=== PATIENT | female | born 1980 | race Caucasian/White ===

== ENCOUNTER 2018-03-21 19:36 | Emergency (ER) | payer OTHER ==
[~2018-03-21] VITALS: Ht 165.1 cm; Wt 99.8 kg
[~2018-03-21 19:36] MED LIST: AUGMENTIN 875-1 EACH PO; TRAMADOL HCL50 M1 PO
--- NOTE | 2018-03-21 21:10 | ED HAND/WRIST INJURY COMPLAINT ---
History of Present Illness General Chief Complaint: Hand or Wrist Injury Stated Complaint: WORK INJURY , ?FREEZER BURN Source: patient Exam Limitations: no limitations Vital Signs & Intake/Output Vital Signs & Intake/Output Vital Signs Date Time Temp Pulse Resp B/P B/P Pulse O2 O2 Flow FiO2 Mean Ox Delivery Rate 03/21 1954 98.5 71 18 151/93 97 Room Air Allergies Coded Allergies: No Known Drug Allergies (02/13/16) Uncoded Allergies: NKDA (02/13/16) Reconcile Medications Amoxicillin/Potassium Clav (Augmentin 875-125 Tablet) 1 EACH TABLET 1 TAB PO BID INFECTION Tramadol HCl 50 MG TABLET 1 TAB PO Q6 PRN BREAKTHROUGH PAIN Triage Note: PT FROM HOME C/O BURN FROM OXYGEN TANK RELEASE VALVE AROUND 1914. PT STATES SHE WAS AT WORK ([employer]) AND STATED SHE WENT TO CHANGE THE 02 TANK AND THE RELEASE VALVE WAS EXTREMEMLY COLD, PT UNSURE IF BURNED, RIGHT HAND DIGIT TIPS ARE RED, NUMB AND UNCOMFORTABLE. PT IS ABLE TO MOVE ALL DIGITS, +2 PULSES RIGHT EXT. VSS. Triage Nurses Notes Reviewed? yes Occurred: just prior to arrival Duration: hour(s): (2), better, continues in ED Timing: single episode today Injury Environment: home Severity: mild, moderate Severity Numbers: 6 Pain/Injury Location: Right: Hand, 2nd finger, 3rd finger, 4th finger. Context: cold burn No Modifying Factors: none Associated Symptoms: redness, numbness LMP (ages 10-50): unknown : No Patient currently breastfeeds: No HPI: 37 year old female hx of pud and htn presents for eval of pain, redness and njumbness in the 2nd, 3rd, 4th and 5th digits on the rt hand. this occured 2 horus ago when pt was attempting to open a very cold tank. she put her hand on the valve of the tank and the valve was very cold. she immiedatly removed her hand. the hand did not stick to the valve. she felt the symptoms shortly after, there was no broken skin, discharge, or swelling. she rpeorts redness numbness and pain to the distal fingers of the rt hand. she is up to date on tetanus. no problems with server assistant strength or moving the hand. (Chilo MATHEW,Jaren) Past History Travel History Traveled to [place] past 21 day No Medical History Any Pertinent Medical History? see below for history Cardiovascular: hypertension Gastrointestinal: peptic ulcer disease, umbilical hernia Tetanus Vaccine: 06/01/11 Surgical History Surgical History: non-contributory Psychosocial History What is your primary language Bulgarian Tobacco Use: Current Daily Use Daily Tobacco Use Amount/Type: => 5 Cigarettes daily Family History Hx Contributory? No (Jaren Montes De Oca) Review of Systems Review of Systems Constitutional: Reports: no symptoms. EENTM: Reports: no symptoms. Respiratory: Reports: no symptoms. Cardiovascular: Reports: no symptoms. GI: Reports: no symptoms. Genitourinary: Reports: no symptoms. Musculoskeletal: Reports: see HPI, joint pain, muscle pain. Skin: Reports: see HPI, erythema. Neurological/Psychological: Reports: numbness. Hematologic/Endocrine: Reports: no symptoms. Immunologic/Allergic: Reports: no symptoms. All Other Systems: Reviewed and Negative (Jaren Montes De Oca) Physical Exam Physical Exam General Appearance: well developed/nourished, no apparent distress, alert, awake Head: atraumatic, normal appearance Eyes: Bilateral: normal appearance, EOMI. Ears, Nose, Throat: hearing grossly normal Neck: normal inspection, supple, full range of motion Cardiovascular/Respiratory: no respiratory distress Back: normal inspection, normal range of motion Shoulder Left: normal range of motion, normal inspection Shoulder Right: normal range of motion, normal inspection Elbow Left: normal range of motion, normal inspection Elbow Right: normal range of motion, normal inspection Forearm Left: normal range of motion, normal inspection Forearm Right: normal range of motion, normal inspection Wrist Left: normal range of motion, normal inspection Wrist Right: normal range of motion, normal inspection Hand Left: normal inspection, normal range of motion Hand Right: normal inspection, normal range of motion, there is no visible erythema swelling doscoloration broken skin or any otehr abnormality of the rt hand. full rom is intact without pain. cap refill less than 2 sec. server assistant strength 5/5. full rom of the wrist. neurovascular supply intact, no observable sensory loss Neurologic/Tendon: normal sensation, normal motor functions, normal tendon functions, responds to pain, no evidence tendon injury, no pulse deficit Skin: intact, normal color, warm/dry (Jaren Montes De Oca) Progress Differential Diagnosis: cellulitis, contusion, compartment syndrome, fracture, paronychia, sprain, tenosynovitis, lowery bite, superficial burn Plan of Care: pt here after briefly touching a very cold valve to a oxygen tank. there balderas snot appear to be any abnormailities to the hand on exam. full rom intact. the hand was cleaned with water and betadine. bacatracin and sterile dressing apllied. pt is up to date on tetanus. change dressing once adily and apply bacatracin. make a follow up with pcp for a recheck in a few days. discussed return precautions in detail. tylenol/ibuprofen for pain. pt agrees (Jaren Montes De Oca) Departure Departure Disposition: HOME OR SELF CARE Condition: Stable Clinical Impression Primary Impression: Hand pain, right Referrals: Ashwini MASTERSON,Eulogio Dahl (PCP/Family) Additional Instructions: Keep the area clean and dry change dressing applied bacitracin once daily. Look out For signs of infection like redness or discharge or pain. Follow up with primary care doctor to recheck in a few days MONITOR symptoms return with any concerns. Departure Forms: Industrial Accident Report (Jaren Montes De Oca) PA/SENIOR RELATIONSHIP MANAGER Co-Sign Statement Statement: ED Attending supervision documentation- I saw and evaluated the patient. I have also reviewed all the pertinent lab results and diagnostic results. I agree with the findings and the plan of care as documented in the PA's/SENIOR RELATIONSHIP MANAGER's documentation. x I have reviewed the ED Record and agree with the PA's/SENIOR RELATIONSHIP MANAGER's documentation. [] Additions or exceptions (if any) to the PAs/SENIOR RELATIONSHIP MANAGER's note and plan are summarized below: [] (Johnnie MASTERSON,Alex)
[2018-03-21 21:22] VITALS: BP 154/80
== END 2018-03-21 21:22 ==
LOC: ERH 19:36
DX: M79.641 Pain in right hand (principal); X58.XXXA Exposure to other specified factors, initial encounter; Y93.9 Activity, unspecified; Y92.9 Unspecified place or not applicable